=== PATIENT | female | born 1985 | race African-American/Black ===

== ENCOUNTER 2021-05-19 00:55 | Inpatient (IN) | payer MEDICAID ==
[2021-05-19 00:58] VITALS: BMI 32.8
[2021-05-19] MEDS ORDERED: Ondansetron PF 4 MG/2 ML Vial IVP PRN (01:49)
[2021-05-19] MEDS ORDERED: Lorazepam 1 MG TAB PO PRN (01:55)
[2021-05-19] MEDS ORDERED: Lorazepam 2 MG/ML VIAL IM PRN (01:55)
[2021-05-19] MEDS ORDERED: Electrolyte Replacement Protocol FS SCH (02:00)
[2021-05-19] MEDS: Lorazepam 1 MG TAB PO SCH ×2 (02:24→08:39)
[2021-05-19] MEDS: NS 0.9% w/ 20 MEQ KCL 1,000 ML/1,000 ML BAG IV SCH ×3 (02:24→20:38)
[2021-05-19 06:04] LABS: #Eosinphils 0.2 10x3/uL (0.0-0.5); #Monocytes 0.6 10x3/uL (0.0-1.1); #Neutrophils 3.7 10x3/uL (1.5-8.4); %Basophils 0.6 % (0.0-2.0); %Eosinophils 3.4 % (0.0-6.0); %Lymphocytes 26.6 % (18.0-47.0); %Monocytes 9.6 % (0.0-10.0); %Neutrophils 59.3 % (40.0-75.0); Hemoglobin 8.9 g/dL (12.0-15.5); Mean Corpuscular Hemoglobin 24.7 pg (27.0-33.0); Mean Corpuscular Volume 82.5 fl (81.6-98.3); Mean Platelet Volume 9.4 fl (7.4-10.4); Platelet Count 263 10x3/uL (150-450); RBC Distribution Width 20.8 % (11.5-14.5); White Blood Cell (WBC) Count 6.3 10x3/uL (3.5-10.5)
[2021-05-19 06:11] LABS: Anion Gap 13 mmol/L (10-20); BUN (Urea Nitrogen) Less than 4 mg/dL (7.0-18.7); Calc. Creatinine Clearance 127 mL/min (70-130); Calcium 8.6 mg/dL (7.8-10.44); Carbon Dioxide 22 mmol/L (22-29); Chloride 106 mmol/L (98-107); Glucose 112 mg/dL (70-105); Magnesium 1.7 mg/dL (1.6-2.6); Potassium 3.5 mmol/L (3.5-5.1); Sodium 137 mmol/L (136-145)
[2021-05-19 06:17] LABS: INR-International Normal Ratio 1.1; PTT 24.9 sec (22.0-33.0); Prothrombin Time 12.4 sec (9.5-12.1)
[2021-05-19 06:27] LABS: Syphilis Antibody Nonreactive (Nonreactive); Syphilis Antibody Index 0.17 S/CO (<1.00 Non-Reactive)
[2021-05-19] MEDS ORDERED: Potassium Chloride 20 MEQ TAB PO SCH (07:30)
[2021-05-19] MEDS ORDERED: Magnesium 2 GM/50 ML 2 GM in Premix Bag 1 BAG IVPB SCH (07:30)
[2021-05-19 08:11] LABS: Ferritin 30.95 ng/mL (10-291)
[2021-05-19] MEDS: Enoxaparin Sodium 40 MG/0.4 ML SYRINGE SC SCH (08:36)
[2021-05-19] MEDS: Pantoprazole 40 MG VIAL IVP SCH (08:38)
[2021-05-19] MEDS ORDERED: Thiamine HCl 200 MG/2 ML VIAL SLOW IVP SCH (09:00)
[2021-05-19] MEDS: Thiamine HCl 200 MG/2 ML VIAL SLOW IVP SCH (09:01)
[2021-05-19] MEDS ORDERED: Acetaminophen 325 MG TAB PO PRN (09:12)
[2021-05-19] MEDS ORDERED: Gabapentin 300 MG CAP PO SCH (09:15)
[2021-05-19] MEDS: Multivitamins, Adult 10 ML, Folic Acid 1 MG in Dextrose 5 %-0.45 % NaCl 1,000 ML IV SCH (11:15)
[2021-05-19] MEDS: chlordiazePOXIDE HCl 25 MG CAP PO SCH ×2 (14:49→20:36)
[2021-05-19] MEDS: Gabapentin 300 MG CAP PO SCH ×2 (16:24→20:36)
[2021-05-19] MEDS ORDERED: chlordiazePOXIDE HCl 25 MG CAP ONE (20:14)
[2021-05-20] MEDS ORDERED: Lorazepam 1 MG TAB PO PRN (01:55)
[2021-05-20] MEDS ORDERED: Nicotine 21 MG PATCH TD SCH ×2 (05:00→22:00)
[2021-05-20 05:21] LABS: #Basophils 0.1 10x3/uL (0.0-0.2); #Eosinphils 0.4 10x3/uL (0.0-0.5); #Monocytes 0.5 10x3/uL (0.0-1.1); #Neutrophils 2.2 10x3/uL (1.5-8.4); %Eosinophils 7.9 % (0.0-6.0); %Lymphocytes 37.3 % (18.0-47.0); %Monocytes 9.1 % (0.0-10.0); %Neutrophils 44.5 % (40.0-75.0); Hemoglobin 8.6 g/dL (12.0-15.5); Mean Corpuscular HGB CONC 30.3 g/dL (32.0-36.0); Mean Corpuscular Hemoglobin 25.3 pg (27.0-33.0); Mean Corpuscular Volume 83.5 fl (81.6-98.3); Mean Platelet Volume 10.4 fl (7.4-10.4); Platelet Count 224 10x3/uL (150-450); RBC Distribution Width 21.2 % (11.5-14.5); White Blood Cell (WBC) Count 4.9 10x3/uL (3.5-10.5)
[2021-05-20] MEDS: NS 0.9% w/ 20 MEQ KCL 1,000 ML/1,000 ML BAG IV SCH (05:25)
[2021-05-20 05:37] LABS: ALT (SGPT) 36 U/L (8-55); AST (SGOT) 89 U/L (5-34); Alkaline Phosphatase 63 U/L (40-110); Anion Gap 8 mmol/L (10-20); BUN (Urea Nitrogen) 4 mg/dL (7.0-18.7); Bilirubin, Total 0.6 mg/dL (0.2-1.2); Calc. Creatinine Clearance 161 mL/min (70-130); Calcium 8.3 mg/dL (7.8-10.44); Carbon Dioxide 23 mmol/L (22-29); Cardiac Risk 2.4 (Less than 4.5); Chloride 108 mmol/L (98-107); Cholesterol 120 mg/dl (< 200 Desired); Globulin 3.8 g/dL (2.4-3.5); Glucose 111 mg/dL (70-105); HDL Cholesterol 51 mg/dL (>60 Neg Risk); LDL Cholesterol, Calculated 51 mg/dL; Phosphorus 2.6 mg/dL (2.3-4.7); Potassium 3.8 mmol/L (3.5-5.1); Protein, Total 6.8 g/dL (6.0-8.3); Sodium 135 mmol/L (136-145); Triglycerides 89 mg/dL (Less than 150)
[2021-05-20 06:01] LABS: Iron 57 ug/dL (50-170); Iron Binding Capacity, Total 308 mcg/dL (265-497)
[2021-05-20 07:05] LABS: Iron 63 ug/dL (50-170); Iron Binding Capacity, Total 311 mcg/dL (265-497)
[2021-05-20] MEDS: Pantoprazole 40 MG VIAL IVP SCH (08:04)
[2021-05-20] MEDS: Enoxaparin Sodium 40 MG/0.4 ML SYRINGE SC SCH (08:05)
[2021-05-20] MEDS: Thiamine HCl 200 MG/2 ML VIAL SLOW IVP SCH (08:05)
[2021-05-20] MEDS: Gabapentin 300 MG CAP PO SCH (08:05)
[2021-05-20] MEDS: chlordiazePOXIDE HCl 25 MG CAP PO SCH (08:06)
[2021-05-20] MEDS ORDERED: FLU VACC QS2021-22(6MOS UP)/PF 60 MCG/0.5 ML SYRINGE IM ONE (09:00)
[2021-05-20] MEDS: Multivitamins, Adult 10 ML, Folic Acid 1 MG in Dextrose 5 %-0.45 % NaCl 1,000 ML IV SCH (10:23)
[2021-05-20 10:41] VITALS: BP 123/61; TEMP 99.8
[2021-05-20] MEDS ORDERED: Lisinopril 20 MG TAB PO SCH (11:15)
[2021-05-20 13:39] LABS: Hemoglobin A1c 5.2 % (4.0-6.0)
[2021-05-21] MEDS ORDERED: Lorazepam 1 MG TAB PO PRN (01:55)
[2021-05-21] MEDS ORDERED: Lorazepam 0.5 MG TAB PO SCH (02:00)
[2021-05-21] MEDS ORDERED: Lisinopril 20 MG TAB PO SCH (09:00)
[2021-05-21] MEDS ORDERED: Ferrous Sulfate 325 MG TAB PO SCH (09:00)
[2021-05-22] MEDS ORDERED: Lorazepam 0.5 MG TAB PO PRN (01:55)
[2021-05-22] MEDS ORDERED: Thiamine 100 MG TAB PO SCH (09:00)
[2021-05-22] MEDS ORDERED: Multivit, Therapeutic 1 TAB PO SCH (09:00)
[2021-05-22] MEDS ORDERED: Folic Acid 1 MG TAB PO SCH (09:00)
== END 2021-05-20 15:00 | disposition home health service (06) | DRG 897 ==
LOC: CSHTELE 00:55
PROVIDERS: ADMIT Family Medicine; ATTEND Family Medicine
PROC: HZ2ZZZZ Detoxification Services for Substance Abuse Treatment (ICD-10-PCS; principal; 2021-05-19)
DX: F10.239 Alcohol dependence with withdrawal, unspecified (principal); K52.9 Noninfective gastroenteritis and colitis, unspecified; I10 Essential (primary) hypertension; F17.210 Nicotine dependence, cigarettes, uncomplicated; E87.6 Hypokalemia; E83.42 Hypomagnesemia; D64.89 Other specified anemias; E53.8 Deficiency of other specified B group vitamins; R94.31 Abnormal electrocardiogram [ECG] [EKG]; Z88.0 Allergy status to penicillin; Z90.49 Acquired absence of other specified parts of digestive tract; Z79.899 Other long term (current) drug therapy
CPT/HCPCS: 36415; 80048; 80053; 80061; 82607; 82728; 82746; 83036; 83540; 83550; 83735; 84100; 84443; 85025; 85610; 85730; 86780; 93005; 93010; C9113; J1650; J3411; J3475; J3480; J7042

== ENCOUNTER 2021-11-20 09:46 | Emergency (ER) | payer MEDICAID ==
[~2021-11-20 09:46] MED LIST: Iopamidol 370 76% 100 ML VIAL ONE
[2021-11-20] MEDS ORDERED: Lorazepam 2 MG/ML VIAL ONE (10:13)
[2021-11-20] MEDS ORDERED: Pantoprazole 40 MG VIAL ONE (10:13)
[2021-11-20] MEDS ORDERED: Ondansetron PF 4 MG/2 ML Vial ONE (10:13)
[2021-11-20 10:42] LABS: #Basophils 0.1 10x3/uL (0.0-0.2); #Eosinphils 0.3 10x3/uL (0.0-0.5); #Monocytes 0.6 10x3/uL (0.0-1.1); #Neutrophils 5.2 10x3/uL (1.5-8.4); %Basophils 0.8 % (0.0-2.0); %Eosinophils 3.9 % (0.0-6.0); %Lymphocytes 14.6 % (18.0-47.0); %Monocytes 7.8 % (0.0-10.0); %Neutrophils 72.5 % (40.0-75.0); Hemoglobin 7.7 g/dL (12.0-15.5); Mean Corpuscular HGB CONC 30.6 g/dL (32.0-36.0); Mean Corpuscular Hemoglobin 22.4 pg (27.0-33.0); Mean Corpuscular Volume 73.3 fl (81.6-98.3); Mean Platelet Volume 9.5 fl (7.4-10.4); Platelet Count 452 10x3/uL (150-450); RBC Distribution Width 21.2 % (11.5-14.5); Red Blood Cell (RBC) Count 3.44 10x6/uL (3.90-5.03); White Blood Cell (WBC) Count 7.2 10x3/uL (3.5-10.5)
[2021-11-20 10:45] LABS: ALT (SGPT) 109 U/L (8-55); AST (SGOT) 233 U/L (5-34); Alkaline Phosphatase 66 U/L (40-110); Anion Gap 20 mmol/L (10-20); BUN (Urea Nitrogen) 7 mg/dL (7.0-18.7); Bilirubin, Total 0.9 mg/dL (0.2-1.2); CK (CPK) 140 U/L (29-168); Calc. Creatinine Clearance 0 mL/min (70-130); Calcium 9.3 mg/dL (7.8-10.44); Carbon Dioxide 20 mmol/L (22-29); Chloride 105 mmol/L (98-107); Globulin 4.5 g/dL (2.4-3.5); Glucose 78 mg/dL (70-105); Lipase 49 U/L (8-78); Potassium 3.6 mmol/L (3.5-5.1); Protein, Total 8.5 g/dL (6.0-8.3); Sodium 141 mmol/L (136-145)
[2021-11-20] MEDS ORDERED: Thiamine HCl 200 MG/2 ML VIAL SLOW IVP SCH (11:00)
[2021-11-20] MEDS ORDERED: Folic Acid 1 MG, Multivitamins, Adult 10 ML in Dextrose 5 %-0.45 % NaCl 1,000 ML IV SCH (11:00)
[2021-11-20 12:42] LABS: Bilirubin Neg (Negative); Blood, Urine 250 (Negative); Clarity Cloudy (Clear); Glucose, Urine (Dipstick) Normal (Negative); Ketone, Urine 15 mg/dL (Negative); Leukocyte 500 (Negative); Nitrite Positive (Negative); Protein, Urine (Dipstick) 30 mg/dl (Neg-Trace); Specific Gravity, Urine 1.025 (1.002-1.036); Urobilinogen Normal mg/dL (Less than 2)
[2021-11-20 13:09] LABS: Bacteria/HPF 4+ HPF (None Seen); RBC/HPF 0-3 HPF (0-3); Squamous Epithelial 0-3 HPF (0-3); WBC/HPF 21-50 HPF (0-3)
[2021-11-20 13:20] LABS: Lactic Acid 1.6 mmol/L (0.5-2.2)
== END 2021-11-20 15:23 | disposition home or self-care (01) ==
LOC: CSHERS 09:46
DX: K29.20 Alcoholic gastritis without bleeding (principal); N39.0 Urinary tract infection, site not specified; D50.9 Iron deficiency anemia, unspecified; F17.210 Nicotine dependence, cigarettes, uncomplicated
CPT/HCPCS: 36415; 71045; 71275; 80053; 81003; 81015; 82550; 83605; 83690; 84484; 85025; 85379; 93005; 94760; 96374; 96375; C9113; J2060; J2405; J7042; Q9967